=== PATIENT | female | born 1975 | race Caucasian/White ===

== ENCOUNTER 2019-11-19 16:31 | Outpatient (CLI) | payer SELFPAY ==
[2019-11-19 16:51] LABS: Basophils # 0.1 10^3/uL (0.0-0.1); Basophils % 0.6 %; Eosinophils # 0.3 10^3/uL (0.0-0.8); Eosinophils % 3.1 %; Hematocrit 38.8 % (37.0-47.0); Hemoglobin 11.9 g/dL (11.5-15.3); Lymphocytes # 2.7 10^3/uL (0.8-4.8); Lymphocytes % 24.8 %; Mean Corpuscular HGB Conc 30.7 g/dL (30.0-36.0); Mean Corpuscular Hemoglobin 26.7 pg (28.0-34.0); Mean Corpuscular Volume 87.2 fL (81-99); Monocytes # 0.6 10^3/uL (0.2-0.9); Monocytes % 5.5 %; Neutrophils # 7.09 10^3/uL (1.8-7.7); Neutrophils % 65.6 %; Nucleated Red Blood Cells % 0 %; Platelet Count 359 10^3/cmm (130-400); Red Blood Count 4.45 10^6/uL (4.1-5.3); Red Cell Distribution Width 14.5 % (12.1-15.1); White Blood Count 10.8 10^3/uL (4.0-10.0)
[2019-11-19 17:17] LABS: Alanine Aminotransferase 23 U/L (0-33); Albumin Level 4.5 g/dL (3.5-5.2); Alkaline Phosphatase 94 IU/L (35-105); Anion Gap 13.9 (5-19); Aspartate Amino Transferase 20 U/L (0-32); Blood Urea Nitrogen 11 mg/dL (6-20); Calcium 9.3 mg/dL (8.5-10.5); Carbon Dioxide 25 mmol/L (22-29); Chloride 103 mmol/L (98-107); Chol HDL Ratio 4.63 mg/dL (0.0-4.40); Cholesterol 199 mg/dL (0-200); Globulin 2.4 g/dL (1.3-4.6); Glomerular Filtration Rate 90.5 mL/min (90-130); Glucose 93 mg/dL (65-115); HDL Cholesterol 43 mg/dL (60-100); LDL Cholesterol Calculated 128 mg/dL (50-129); LDL HDL Ratio 2.98 RATIO (0.00-3.22); Osmolality Calculated 282 mOsm/kg (285-295); Potassium 3.9 mmol/L (3.5-5.1); Sodium 138 mmol/L (136-145); Total Bilirubin 0.3 mg/dL (0.15-1.2); Total Protein 6.9 g/dL (6.6-8.7); Triglycerides 141 mg/dL (0-150)
[2019-11-19 21:20] LABS: Estmated Average Glucose 120; Hemoglobin A1C 5.8 % (4.0-6.0)
== END 2019-11-19 16:32 | disposition home or self-care (01) ==
LOC: LAB 16:31
PROVIDERS: Family Provider Family Medicine; PCP Family Medicine; Visit Provider General Practice
DX: I10 Essential (primary) hypertension (principal)
CPT/HCPCS: 80053; 80061; 83036; 85025

== ENCOUNTER 2020-08-19 10:24 | Emergency (ER) | payer SELFPAY ==
--- NOTE | 2020-08-19 11:19 | XR_ITS ---
WS: [id number] Portable AP upright chest, 08/19/2020 Clinical Data: chest pain Comparison: PA and lateral chest, 12/27/2017. Findings: No nodules, masses or effusions are seen. The heart is normal. The pulmonary vascularity is not increased. No pneumonia or pneumothorax is seen. XR/XR chest 1V portable [id number] Impression: Negative chest.
--- NOTE | 2020-08-19 11:19 | ECG_ITS ---
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 Measurements Intervals [place] Rate: 84 P: 50 AL: 143 QRS: 39 QRSD: 105 T: 29 QT: 366 QTc: 433 Interpretive Statements SINUS RHYTHM INCOMPLETE RIGHT BUNDLE BRANCH BLOCK [90+ ms QRS DURATION, TERMINAL R IN V1/V2, 40+ ms S IN I/aVL/V4/V5/V6] Compared to ECG 12/27/2017 18:34:26 Incomplete right bundle-branch block now present Electronically Signed On 08-19-2020 21:49:06 CDT by Derrell Roth M.D. [email or web address]/store/NU/[id number] f
--- NOTE | 2020-08-19 11:21 | ED_ITS ---
HPI - Chest Pain General: Chief Complaint: Chest Pain Stated Complaint: HIGH BP, CP, SENT FROM Time Seen by Provider: 08/19/20 11:10 History of Present Illness: HPI narrative: Patient is a 44-year-old female with a history of coronary artery disease status post stent placement about 5 years ago, hypertension, depression who has been out of her antihypertensives for about 2 months due to logistic reasons. Yesterday when she went to the [facility] her blood pressure was significantly elevated and refilled one of her 2 antihypertensives. This morning while at work she felt dizzy, had a headache, and states that she was unable to remember how to write the number 9. She then went to urgent care and her blood pressure was significantly elevated so she was asked to come to the emergency room since she also had chest pain that developed about 2 hours ago. She denies any nausea, vomiting, diaphoresis. MD complaint: chest pain Pertinent past history: coronary artery disease and prior MS Onset (ago): hour(s) (2) Timing of current episode: constant Prior episodes: No Onset: during rest Pain location: left chest Pain radiation: left shoulder Severity: mild Quality: aching Relieving factors: rest Exacerbating factors: nothing Associated symptoms: Deny abdominal pain, diaphoresis, dyspnea, fever(s), leg edema, nausea, palpitations, sense of impending doom, syncope or vomiting Treatment prior to arrival: none Review of Systems General: Reports: 10 or more systems reviewed and unremarkable except in HPI and below Const: Denies: fever(s) or diaphoresis Card: Denies: palpitations or syncope Resp: Denies: dyspnea GI: Denies: abdominal pain, nausea or vomiting Neuro: Reports: headache(s) and confusion PFSH ED PFSH: Medical History (Reviewed 08/19/20 @ 11:23 by Maria T Alex MD, [facility] – [place] Acute bilateral low back pain with right-sided sciatica Anxiety and depression Atherosclerotic heart disease of [place] coronary artery without angina pectoris Benign essential HTN Fibromyalgia GERD (gastroesophageal reflux disease) Mixed hyperlipidemia Type 2 diabetes mellitus without complications Surgical History (Reviewed 08/19/20 @ 11:23 by Maria T Alex MD, [facility] – [place] H/O section H/O hand surgery S/P cholecystectomy Family History (Reviewed 08/19/20 @ 11:23 by Maria T Alex MD, [facility] – [place]) Other Cancer Diabetes Hypertension Social History (Reviewed 08/19/20 @ 11:23 by Maria T Alex MD, [facility] – [place]) Smoking and tobacco status: current every day smoker cigarettes Packs smoked per day: 1 Alcohol intake: current Alcohol intake frequency: holidays/special occasions only Physical Exam Const: COMMON NORMALS: no acute distress, average body habitus, patient oriented x3, no limitations, healthy appearing, alert and well nourished HENMT: COMMON NORMALS: normocephalic, atraumatic and moist oral mucous membranes HEAD & SCALP: normocephalic and atraumatic Neck/C-Spine: COMMON NORMALS: no meningeal signs and no JVD Chest: COMMONS NORMALS: normal inspection of the chest and normal palpation of entire chest wall Resp: COMMON NORMALS: normal respiratory effort, No retractions, No use of accessory muscles, clear to auscultation bilaterally and percussion normal AUSCULTATION: clear to auscultation bilaterally PERCUSSION: percussion normal Cardio: COMMON NORMALS: no JVD, regular rate, regular rhythm, S1 normal heart sound present, S2 normal heart sound present, No gallops present (Cardio), No clicks present (Cardio), No murmurs present (Cardio), No rub (Cardio) and Peripheral pulses 2+ throughout RATE: regular rate RHYTHM: regular rhythm HEART SOUNDS: S1 normal heart sound present and S2 normal heart sound present PERIPHERAL PULSES: Peripheral pulses 2+ throughout GI: COMMON NORMALS: Normal to inspection, nondistended, normoactive bowel sounds present, Soft to palpation, non-tender, No hepatosplenomegaly present, no masses and no bruits PALPATION: Yes Soft to palpation and Yes No hepatosplenomegaly present Extremity: COMMON NORMALS: normal to inspection, full ROM, capillary refill normal, no calf tenderness and no pedal edema Neuro: COMMON NORMALS: patient oriented x3 SENSORIUM/ORIENTATION: Yes alert MENINGEAL SIGNS: Yes no meningeal signs Course Reevaluation(s): Reevaluation #1: Discussed her initial lab and troponin findings with her as well as her imaging findings. Negative chest x-ray, head CT was concerning for an opacification of her left maxillary sinus with extension into the left nasal cavity and left frontal ethmoid recess. Advised t hat she will need to see ENT for further evaluation. She states that she has chronic issues with her sinuses but has not seen ENT recently. We will place a referral to case management to schedule an appointment with ENT. Explained that her blood pressure is elevated but it is not advised to bring it down acutely as she is asymptomatic at this time. She voiced understanding and is in agreement with the plan. Time: 13:04 Reevaluation #2: Discussed her 2-hour troponin results with her. Unremarkable. She has a flat delta. We will therefore discharge her home with no new orders. She voiced understanding and is in agreement with the plan. She will be referred to ENT for the sinus mass. Time: 16:11 Vital Signs: Vital signs: Vital Signs Temperature 98.4 F 08/19/20 11:29 Pulse Rate 89 08/19/20 16:37 Respiratory Rate 16 08/19/20 16:37 Blood Pressure 153/118 08/19/20 16:37 Pulse Oximetry 96 08/19/20 16:37 MDM - Chest Pain MDM Narrative: Medical decision making narrative: 44-year-old female patient who presents to the emergency department with headache, chest pain and elevated blood pressure. She had been out of her antihypertensives for about 2 months until last night when she got it refilled at the [facility]. Because blood pressure was significantly elevated and she complained of a significant headache a head CT was obtained which showed a mass in her left maxillary sinus that extends to the frontal sinus. She is referred to ENT for follow-up of the mass. Evaluation was otherwise unremarkable and she is discharged home. Blood pressure improved without intervention. Medical Records: Attestation: I reviewed the patient's medical records. Lab Data: Attestation: I reviewed the patient's lab results. Labs: Lab Results 08/19/20 08/19/20 08/19/20 Range/Units 11:40 11:40 11:40 WBC 10.1 H (4.0-10.0) 10^3/ uL RBC 5.20 (4.1-5.3) 10^6/u L Hgb 13.9 (11.5-15.3) g/dL Hct 44.1 (37.0-47.0) % MCV 84.8 (81-99) fL MCH 26.7 L (28.0-34.0) pg MCHC 31.5 (30.0-36.0) g/dL RDW 13.2 (12.1-15.1) % Plt Count 387 (130-400) 10^3/c mm MPV 9.8 (7.4-10.4) fL Neut % (Auto) 57.3 % Lymph % (Auto) 31.0 % [place] % (Auto) 6.4 % Eos % (Auto) 4.4 % Baso % (Auto) 0.6 % Neut # (Auto) 5.78 (1.8-7.7) 10^3/u L Lymph # (Auto) 3.1 (0.8-4.8) 10^3/u L [place] # (Auto) 0.7 (0.2-0.9) 10^3/u L Eos # (Auto) 0.4 (0.0-0.8) 10^3/u L Baso # (Auto) 0.1 (0.0-0.1) 10^3/u L Nucleated RBC % (a uto) 0 % Nucleated RBCs # 0.0 /100WBC PT 13.30 (12.1-14.9) SECO NDS INR 0.98 (0.8-1.2) Sodium 139 (136-145) mmol/L Potassium 4.1 (3.5-5.1) mmol/L Chloride 103 (98-107) mmol/L Carbon Dioxide 25 (22-29) mmol/L Anion Gap 15.1 (5-19) BUN 8 (6-20) mg/dL Creatinine 0.6 (0.5-0.9) mg/dL GFR Calculation 108.1 (90-130) mL/min Glucose 106 (65-115) mg/dL Calculated Osmolal ity 287 (285-295) mOsm/k g Calcium 8.7 (8.5-10.5) mg/dL Total Bilirubin 0.3 (0.15-1.2) mg/dL AST 16 (0-32) U/L ALT 22 (0-33) U/L Alkaline Phosphata se 117 H (35-105) IU/L Troponin T Baselin e (0-10) ng/L Troponin T 120 Min [place] Troponin T NT-Pro-B Natriuret Pep 41 (0-125) pg/mL Total Protein 7.4 (6.6-8.7) g/dL Albumin 4.6 (3.5-5.2) g/dL Globulin 2.8 (1.3-4.6) g/dL Lipase 22 (13-60) U/L 08/19/20 08/19/20 08/19/20 Range/Units 11:40 13:50 15:11 WBC (4.0-10.0) 10^3/ uL RBC (4.1-5.3) 10^6/u L Hgb (11.5-15.3) g/dL Hct (37.0-47.0) % MCV (81-99) fL MCH (28.0-34.0) pg MCHC (30.0-36.0) g/dL RDW (12.1-15.1) % Plt Count (130-400) 10^3/c mm MPV (7.4-10.4) fL Neut % (Auto) % Lymph % (Auto) % [place] % (Auto) % Eos % (Auto) % Baso % (Auto) % Neut # (Auto) (1.8-7.7) 10^3/u L Lymph # (Auto) (0.8-4.8) 10^3/u L [place] # (Auto) (0.2-0.9) 10^3/u L Eos # (Auto) (0.0-0.8) 10^3/u L Baso # (Auto) (0.0-0.1) 10^3/u L Nucleated RBC % (a uto) % Nucleated RBCs # /100WBC PT (12.1-14.9) SECO NDS INR (0.8-1.2) Sodium (136-145) mmol/L Potassium (3.5-5.1) mmol/L Chloride (98-107) mmol/L Carbon Dioxide (22-29) mmol/L Anion Gap (5-19) BUN (6-20) mg/dL Creatinine (0.5-0.9) mg/dL GFR Calculation (90-130) mL/min Glucose (65-115) mg/dL Calculated Osmolal ity (285-295) mOsm/k g Calcium (8.5-10.5) mg/dL Total Bilirubin (0.15-1.2) mg/dL AST (0-32) U/L ALT (0-33) U/L Alkaline Phosphata se (35-105) IU/L Troponin T Baselin e 6 (0-10) ng/L Troponin T 120 Min [place] Cancelled 6.00 Delta Troponin T Cancelled 0 NT-Pro-B Natriuret Pep (0-125) pg/mL Total Protein (6.6-8.7) g/dL Albumin (3.5-5.2) g/dL Globulin (1.3-4.6) g/dL Lipase (13-60) U/L Imaging Data^: CT Head: Attestation: I personally reviewed and interpreted this imaging study as follows: Radiologist's impression: [address] [id number] Scan ReportSigned Patient: Kaley Graham #: [id number]: 1975Acct#:[id number]/Sex: 44 / FADM Date: 08/19/20Loc: ERRoom/Bed:Attending Dr: Ordering Provider/Ordering MD: Maria T Alex MD, [facility] – [place] Date of Service: 08/19/20 Procedure(s): CT head wo con* [id number] Accession Number(s): [id number] Report Number: [id number] WS: [id number] CT HEAD NONCONTRAST HISTORY: HTN, DOOLEY, confusion TECHNIQUE: Contiguous axial imaging performed through the brain in 2.5 mm imaging. Bone and soft tissue windows. Sagittal and coronal reformats reviewed. All CT scans at [facility] use at least one of these dose optimization techniques: automated exposure control; mA and/or kV adjustment per patient size (includes targeted exams where dose is matched to clinical indication); or iterative reconstruction. DLP: 875.65 mGy.cm COMPARISON: None available. No acute intracranial hemorrhage, midline shift or mass effect. No atrophy or prior infarcts or herniation. Small calcification in the fourth ventricle. Etiology is uncertain. No associated mass. Ventricles: Normal size with no hydrocephalus. Paranasal sinuses: Soft tissue mass completely visualized LEFT maxillary sinus with mild expansion of the sinus cavity and extension into the LEFT nasal cavity. There is mild extension of the soft tissue into the LEFT frontal ethmoid recess. No additional sinus disease. Mastoid air cells: Well pneumatized. Calvarium and scalp: Skull is intact with no soft tissue edema or swelling. CT/CT head wo con* [id number] IMPRESSION: 1. No acute intracranial hemorrhage or edema. 2. Expansile soft tissue completely opacifying the LEFT maxillary sinus with extension into the LEFT nasal cavity and LEFT frontal ethmoid recess. Recommend further evaluation with ENT. Differential includes mucocele, fungal infection or neoplasm. Dictated By:Roxie Guthrie DOSigned By:Roxie Guthrie DOSigned Date/Time:08/19/20 1233DD/ 1225 CXR: Attestation: I personally reviewed and interpreted this imaging study as follows: Radiologist's impression: [address] [id number] ReportSigned Patient: Kaley Graham #: [id number]: 1975Acct# :[id number]/Sex: 44 / FADM Date: 08/19/20Loc: ERRoom/Bed:Attending Dr: Ordering Provider/Ordering MD: Maria T Alex MD, [facility] – [place] Date of Service: 08/19/20 Procedure(s): XR chest 1V portable [id number] Accession Number(s): [id number] Report Number: [id number] WS: [id number] Portable AP upright chest, 08/19/2020 Clinical Data: chest pain Comparison: PA and lateral chest, 12/27/2017. Findings: No nodules, masses or effusions are seen. The heart is normal. The pulmonary vascularity is not increased. No pneumonia or pneumothorax is seen. XR/XR chest 1V portable [id number] Impression: Negative chest. Dictated By:Katerin Stephens MDSigned By:Katerin Stephens MDSigned Date/Time:08/19/20 1147DD/ 1146 EKG Data^: EKG 1: Attestation: I personally reviewed and interpreted this EKG as follows: EKG interpretation date: 08/19/20 EKG interpretation time: 11:19 Prior EKG tracings: not available for review Interpretation: Sinus rhythm. Heart rate 84 bpm. Incomplete right bundle branch block. Q wave in lead III EKG 2: Attestation: I personally reviewed and interpreted this EKG as follows: EKG interpretation date: 08/19/20 EKG interpretation time: 14:03 Prior EKG tracings: available for review Interpretation: Sinus rhythm. Heart rate 82 bpm. Incomplete right bundle branch block. No ST changes. No significant change from earlier today. Discharge Plan Discharge Patient Disposition: Home Clinical Impression: Benign essential HTN, Maxillary sinus mass Chest pain Qualifiers: Chest pain type: unspecified Qualified Code(s): R07.9 - Chest pain, unspecified Condition: Stable Prescriptions: Continued nitroglycerin 0.4 mg tablet, sublingual 0.4 mg SUBLINGUAL Q5M PRN (Reason: Chest Pain) RF: 0 albuterol sulfate [Ventolin HFA] 90 mcg/actuation HFA aerosol inhaler 2 puff INHALATION Q4H PRN (Reason: Shortness Of Breath) RF: 0 cyclobenzaprine 10 mg tablet 10 mg PO BEDTIME RF: 0 melatonin 3 mg Tablet 6 mg PO BEDTIME RF: 0 pantoprazole 20 mg Tablet,Delayed Release (Dr/Ec) 20 - 40 mg PO DAILY RF: 0 gabapentin 1 cap PO BEDTIME RF: 0 vitamin E 1 cap PO DAILY RF: 0 sertraline 100 mg tablet 100 mg PO QAM RF: 0 amlodipine 10 mg tablet 10 mg PO DAILY RF: 0 Discharge Orders: Discharge ED (Routine); Ordered 08/19/20 Ordered By: Maria T Alex Referrals: Kathrine Posada DO [Primary Care Provider] - 1-3 days Discharge Diet: Usual diet Discharge Activity: Increase activity as tolerated Patient Instructions: Chest Pain (ED), Hypertension (ED) Activity Restrictions/Additional Instructions: Return for any new or worsening symptoms. Follow-up with your primary care provider within 3 days. You will be scheduled an appointment with the ear nose and throat doctor for evaluation of the mass in your sinus. Continue your home medications, it is important that you take your blood pressure medicines as this will go a long way to preventing complications from hypertension. Coding Level of Care Code ED Aerotriangulation Specialist for Chg Fwd Exam Comprehensive
[2020-08-19 11:29] VITALS: BP 162/102; PULSE 87; RESP 16; TEMP 36.9; O2SAT 97; BMI 34.9
[2020-08-19] MEDS: aspirin 81 mg Chew Tablet 324 MG PO (11:30)
--- NOTE | 2020-08-19 11:38 | CT_ITS ---
WS: [id number] CT HEAD NONCONTRAST HISTORY: HTN, DOO[place], confusion TECHNIQUE: Contiguous axial imaging performed through the brain in 2.5 mm imaging. Bone and soft tiss ue windows. Sagittal and coronal reformats reviewed. All CT scans at [facility] use at le ast one of these dose optimization techniques: automated exposure control; mA and/or kV adjustment pe r patient size (includes targeted exams where dose is matched to clinical indication); or iterative r econstruction. DLP: 875.65 mGy.cm COMPARISON: None available. No acute intracranial hemorrhage, midline shift or mass effect. No atrophy or prior infarcts or herniation. Small calcification in the fourth ventricle. Etiology is uncertain. No associated mass. Ventricles: Normal size with no hydrocephalus. Paranasal sinuses: Soft tissue mass completely visualized LEFT maxillary sinus with mild expansion of the sinus cavity and extension into the LEFT nasal cavity. There is mild extension of the soft tissu e into the LEFT frontal ethmoid recess. No additional sinus disease. Mastoid air cells: Well pneumatized. Calvarium and scalp: Skull is intact with no soft tissue edema or swelling. CT/CT head wo con* [id number] IMPRESSION: 1. No acute intracranial hemorrhage or edema. 2. Expansile soft tissue completely opacifying the LEFT maxillary sinus with e xtension into the LEFT nasal cavity and LEFT frontal ethmoid recess. Recommend further evaluation with ENT. Differential includes mucocele, fungal infection o r neoplasm.
--- NOTE | 2020-08-19 11:49 | PC.PHAR ---
PT STATES SHE TAKES CARE OF HER OWN MEDICATIONS-PT STATES SHE TAKES THE MEDICATIONS ENTERED-PT STATES SHE GETS THIS MEDICATION FROM THE [facility] IS CLOSED TO GET MED LIST TO VERIFY MEDICATION
[2020-08-19 11:54] LABS: Basophils # 0.1 10^3/uL (0.0-0.1); Basophils % 0.6 %; Eosinophils # 0.4 10^3/uL (0.0-0.8); Eosinophils % 4.4 %; Hematocrit 44.1 % (37.0-47.0); Hemoglobin 13.9 g/dL (11.5-15.3); Lymphocytes # 3.1 10^3/uL (0.8-4.8); Mean Corpuscular HGB Conc 31.5 g/dL (30.0-36.0); Mean Corpuscular Hemoglobin 26.7 pg (28.0-34.0); Mean Corpuscular Volume 84.8 fL (81-99); Mean Platelet Volume 9.8 fL (7.4-10.4); Monocytes # 0.7 10^3/uL (0.2-0.9); Monocytes % 6.4 %; Neutrophils # 5.78 10^3/uL (1.8-7.7); Neutrophils % 57.3 %; Nucleated Red Blood Cells % 0 %; Platelet Count 387 10^3/cmm (130-400); Red Cell Distribution Width 13.2 % (12.1-15.1); White Blood Count 10.1 10^3/uL (4.0-10.0)
[2020-08-19 12:05] LABS: INR 0.98 (0.8-1.2)
[2020-08-19 12:10] LABS: Troponin(5th) Baseline 6 ng/L (0-10)
[2020-08-19 12:18] LABS: Alanine Aminotransferase 22 U/L (0-33); Albumin Level 4.6 g/dL (3.5-5.2); Alkaline Phosphatase 117 IU/L (35-105); Anion Gap 15.1 (5-19); Aspartate Amino Transferase 16 U/L (0-32); Blood Urea Nitrogen 8 mg/dL (6-20); Calcium 8.7 mg/dL (8.5-10.5); Carbon Dioxide 25 mmol/L (22-29); Chloride 103 mmol/L (98-107); Globulin 2.8 g/dL (1.3-4.6); Glomerular Filtration Rate 108.1 mL/min (90-130); Glucose 106 mg/dL (65-115); Lipase 22 U/L (13-60); NT Pro B Type Natriuretic Pept 41 pg/mL (0-125); Osmolality Calculated 287 mOsm/kg (285-295); Potassium 4.1 mmol/L (3.5-5.1); Sodium 139 mmol/L (136-145); Total Bilirubin 0.3 mg/dL (0.15-1.2); Total Protein 7.4 g/dL (6.6-8.7)
[2020-08-19 13:13] VITALS: BP 146/98; PULSE 95; RESP 18; O2SAT 98
--- NOTE | 2020-08-19 13:19 | ECG_ITS ---
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 Measurements Intervals [place] Rate: 82 P: 63 MN: 144 QRS: 58 QRSD: 100 T: 45 QT: 388 QTc: 454 Interpretive Statements SINUS RHYTHM INCOMPLETE RIGHT BUNDLE BRANCH BLOCK [90+ ms QRS DURATION, TERMINAL R IN V1/V2, 40+ ms S IN I/aVL/V4/V5/V6] Compared to ECG 08/19/2020 11:19:48 No significant changes Electronically Signed On 08-19-2020 21:59:19 CDT by Derrell Roth M.D. [id number] f
[2020-08-19 14:00] VITALS: BP 133/85; PULSE 94; RESP 18; O2SAT 96
--- NOTE | 2020-08-19 14:12 | DCPLANNER ---
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 Patient stated that she is currently working on filling out the student financial aid manager application for the hospital. Original Note: casino cashier manager was asked to schedule a follow up appointment for patient with ENT. casino cashier manager emailed patients information to Kiarra Burnette and Nicki at [facility] clinic. Patients information will be printed and reviewed. Clinic will call patient with appointment information.
[2020-08-19 15:49] LABS: Troponin 5 2HR Delta 0 ABS# (0-10)
[2020-08-19 16:37] VITALS: BP 153/118; PULSE 89; RESP 16; O2SAT 96
--- NOTE | 2020-08-23 10:54 | DCPLANNER ---
Patient has a follow up appointment scheduled for , August at 3:[address] Jc at [facility]. Clinic will call patient with appointment information.
--- NOTE | 2020-10-24 07:52 | DCPLANNER ---
Patient had a follow up appointment scheduled for 08.25.[address] Jc at the ENT clinic - patient did attend appointment.
== END 2020-08-19 16:39 | disposition home or self-care (01) ==
PROVIDERS: Emergency Provider Family Medicine; PCP Family Medicine
DX: R07.9 Chest pain, unspecified (principal); I10 Essential (primary) hypertension; J32.0 Chronic maxillary sinusitis; I25.10 Atherosclerotic heart disease of native coronary artery without angina pectoris; E78.2 Mixed hyperlipidemia; E11.9 Type 2 diabetes mellitus without complications; F17.210 Nicotine dependence, cigarettes, uncomplicated
CPT/HCPCS: 36415; 70450; 71045; 80053; 83690; 83880; 84484; 85025; 85610; 93005; 99283

== ENCOUNTER → 2021-05-19 15:26 | Outpatient (BNVA) | payer BC, SELFPAY | PROVIDERS: PCP Family Medicine; Visit Provider Nurse Practitioner Family | DX: R05.9 Cough, unspecified (principal); R11.0 Nausea; N92.6 Irregular menstruation, unspecified | CPT/HCPCS: 71046; 81000; 81025 ==

== ENCOUNTER → 2021-05-24 09:07 | Outpatient (BNVA) | payer BC, SELFPAY | PROVIDERS: PCP Family Medicine; Visit Provider Nurse Practitioner Family | DX: R73.9 Hyperglycemia, unspecified (principal); I10 Essential (primary) hypertension | CPT/HCPCS: 80053; 80061; 82150; 82306; 82607; 83036; 83690; 83735; 84443; 85025 ==

== ENCOUNTER → 2022-11-20 17:41 | Outpatient (BNVA) | payer MEDICAID, SELFPAY | PROVIDERS: PCP Family Medicine; Visit Provider Nurse Practitioner Family | DX: R05.9 Cough, unspecified (principal); E55.9 Vitamin D deficiency, unspecified; R73.9 Hyperglycemia, unspecified; E78.2 Mixed hyperlipidemia; I10 Essential (primary) hypertension; J18.9 Pneumonia, unspecified organism; R06.02 Shortness of breath | CPT/HCPCS: 80053; 80061; 81003; 82306; 82607; 83036; 83735; 84443; 85025 ==

== ENCOUNTER 2022-11-21 10:50 | Outpatient (CLI) | payer MEDICAID, SELFPAY ==
--- NOTE | 2022-11-21 11:06 | XRR_ITS ---
PROCEDURE INFORMATION: Exam: XR Chest Exam date and time: 11/21/2022 11:11 AM Age: 47 years old Clinical indication: Cough; Patient HX: Checking for pneumonia; Additional info: R05.9 - cough, unspecified TECHNIQUE: Imaging protocol: Radiologic exam of the chest. Views: 2 views. COMPARISON: CR XR chest 2V* [id number] 05/19/2021 3:32 PM FINDINGS: Lungs: Unremarkable. No consolidation. Pleural spaces: Unremarkable. No pleural effusion. No pneumothorax. Heart/Mediastinum: Unremarkable. No cardiomegaly. Bones/joints: Unremarkable. XR/XR chest 2V* [id number] IMPRESSION: No acute findings.
== END 2022-11-21 10:51 | disposition home or self-care (01) ==
PROVIDERS: PCP Family Medicine; Visit Provider Nurse Practitioner Family
DX: R05.9 Cough, unspecified (principal)
CPT/HCPCS: 71046

== ENCOUNTER → 2023-09-23 09:33 | Outpatient (BNVA) | payer MEDICAID, SELFPAY | PROVIDERS: PCP Nurse Practitioner Family; Visit Provider Nurse Practitioner Family | DX: I10 Essential (primary) hypertension (principal); E11.9 Type 2 diabetes mellitus without complications; E55.9 Vitamin D deficiency, unspecified; E78.2 Mixed hyperlipidemia; R09.1 Pleurisy | CPT/HCPCS: 80053; 80061; 82043; 82306; 82607; 83036; 84443; 85025 ==